=== PATIENT | female | born 2000 | race African-American/Black ===

== ENCOUNTER 2022-02-10 12:40 | Observation (INO) ==
[2022-02-10] MEDS ORDERED: SODIUM CHLORIDE 0.9% 1,000 ML IV STA ×3 (13:21→14:35)
[2022-02-10] MEDS ORDERED: PROMETHAZINE INJ 25 MG in SODIUM CHLORIDE 0.9% 50 ML IV STA (13:24)
[2022-02-10] MEDS ORDERED: PROMETHAZINE 25 MG/1 ML VIAL ONE (13:26)
[2022-02-10 13:33] LABS: Hematocrit 38.2 VOL% (35.7-47.0); Hemoglobin 13.6 GM/DL (12.0-16.0); Mean Corpuscular HGB Conc 35.6 GM/DL (32-36); Mean Corpuscular Volume 87.4 FL (87-102); Mean Platelet Volume 10.4 FL (9.6-12.0); Platelet Count 274 T/CUMM (130-400); Red Blood Count 4.37 MC/CUMM (3.8-5.5); Red Cell Distribution Width 12.2 % (9.3-17.3); White Blood Count 7.2 T/CUMM (4-12)
[2022-02-10 13:34] LABS: Basophils % 0.1 % (0.0-0.8); Eosinophils % 0.1 % (0.00-10.9); Immature Granulocytes % 0.4 %; Immature Granulocytes Absolute 0.03 #; Lymphocytes # 1.7 10*3/uL (1.4-4.0); Lymphocytes % 23.3 % (21.3-54.2); Monocytes # 0.5 10*3/uL (0.11-0.8); Monocytes % 6.4 % (1.7-12.7); Neutrophils % 69.7 % (38.7-73.9)
[2022-02-10 13:41] LABS: Mucus,Urine Many /LPF (Occasional); RBC,Urine 9 /HPF (0-4); Squamous Epithelial Cell,Urine Few /HPF (0-10)
[2022-02-10 13:42] LABS: Urine Appearance Slightly Cloudy (Clear); Urine Color Yellow (Yellow)
[2022-02-10 13:43] LABS: Bilirubin,Urine Large mg/dL (Negative); Blood, Urine Trace mg/dL (Negative); Glucose,Urine (UA) 100 mg/dL (Negative); Ketones,Urine >160 mg/dL (Negative); Nitrite,Urine Negative (Negative); Protein,Urine 100 mg/dL (Negative); Urine Specific Gravity > 1.030 (1.001-1.035)
[2022-02-10 13:55] LABS: Albumin 3.9 G/DL (3.4-5.0); Bilirubin,Total 0.9 MG/DL (0.20-1.00); Osmolality,Calculated 264.5 MOS/KG (273-304); Potassium 3.1 MMOL/L (3.5-5.1); Total Protein 8.4 G/DL (6.4-8.2)
[2022-02-10] MEDS: POTASSIUM CHLORIDE RIDER 10 MEQ/100 ML PREMIX IV SCH ×4 (14:46→21:25)
[2022-02-10] MEDS ORDERED: ACETAMINOPHEN 325 MG TABLET PO PRN (17:56)
[2022-02-10] MEDS ORDERED: MAGNESIUM HYDROXIDE SUSP 30 ML UDCUP PO PRN (17:56)
[2022-02-10] MEDS ORDERED: BISACODYL 10 MG SUPP RECTAL PRN (17:56)
[2022-02-10] MEDS: LACTATED RINGERS 1,000 ML IV SCH (19:15)
[2022-02-10] MEDS: ONDANSETRON 4 MG/2 ML VIAL IV SCH (21:13)
[2022-02-11] MEDS: POTASSIUM CHLORIDE RIDER 10 MEQ/100 ML PREMIX IV SCH ×2 (01:16→04:02)
[2022-02-11] MEDS: ONDANSETRON 4 MG/2 ML VIAL IV SCH ×4 (03:37→21:35)
[2022-02-11] MEDS ORDERED: POTASSIUM CHLORIDE RIDER 10 MEQ/100 ML PREMIX IV SCH (04:00)
[2022-02-11 06:16] LABS: Calcium 9.3 MG/DL (8.5-10.1); Osmolality,Calculated 265.2 MOS/KG (273-304); Potassium 3.2 MMOL/L (3.5-5.1)
[2022-02-11] MEDS: POTASSIUM CHLORIDE 20 MEQ TABLET PO PRN ×4 (06:57→13:25)
[2022-02-11] MEDS ORDERED: AZITHROMYCIN 250 MG TABLET PO ONE (08:52)
[2022-02-11] MEDS ORDERED: cefTRIAXone 1,000 MG in SODIUM CHLORIDE 0.9% 100 ML IV ONE (08:54)
[2022-02-11] MEDS ORDERED: SCOPOLAMINE 1.5 MG PATCH TRANSDERM SCH (09:00)
[2022-02-11] MEDS: LACTATED RINGERS 1,000 ML IV SCH ×2 (09:00→17:20)
[2022-02-11] MEDS: DOCUSATE SODIUM 100 MG CAPSULE PO SCH ×2 (09:20→21:35)
[2022-02-11 20:10] LABS: Calcium 8.8 MG/DL (8.5-10.1); Osmolality,Calculated 266.1 MOS/KG (273-304); Potassium 3.1 MMOL/L (3.5-5.1)
[2022-02-11] MEDS: POTASSIUM CHLORIDE RIDER 10 MEQ/100 ML PREMIX IV PRN ×2 (21:35→23:42)
[2022-02-12] MEDS: POTASSIUM CHLORIDE 20 MEQ TABLET PO PRN ×3 (00:28→04:19)
[2022-02-12] MEDS: LACTATED RINGERS 1,000 ML IV SCH ×3 (02:34→19:47)
[2022-02-12 06:59] LABS: Calcium 8.7 MG/DL (8.5-10.1); Osmolality,Calculated 270.7 MOS/KG (273-304); Potassium 3.7 MMOL/L (3.5-5.1)
[2022-02-12] MEDS: ONDANSETRON 4 MG/2 ML VIAL IV PRN ×2 (13:05→19:46)
[2022-02-12] MEDS: DOCUSATE SODIUM 100 MG CAPSULE PO SCH ×2 (14:05→21:08)
[2022-02-13] MEDS: LACTATED RINGERS 1,000 ML IV SCH (06:33)
[2022-02-13 08:24] VITALS: BP 119/72
[2022-02-13] MEDS: ONDANSETRON 4 MG/2 ML VIAL IV PRN (08:24)
[2022-02-13] MEDS ORDERED: SCOPOLAMINE 1.5 MG PATCH TRANSDERM SCH (09:00)
[2022-02-13] MEDS: DOCUSATE SODIUM 100 MG CAPSULE PO SCH (15:37)
== END 2022-02-13 14:20 | disposition home or self-care (01) ==
LOC: N.EDINP 12:40 → N.ED 12:40 → N.EDINP 20:00 → N.OB 20:03
PROVIDERS: ADMIT Obstetrics & Gynecology; ATTEND Obstetrics & Gynecology